=== PATIENT | female | born 1965 | race American Indian/Alaskan Native ===

== ENCOUNTER 2018-09-16 18:26 | Emergency (ER) | payer MEDICARE, OTHER ==
[2018-09-16 18:44] VITALS: RESP 18
--- NOTE | 2018-09-16 19:29 | C.PDOC ---
History Of Present Illness 53 year old female with PMHx of DM and HTN presents to the ED c/o slightly elevated blood pressure, currently asymptomatic. Patient was seen at Dr. Long's office today and was given Lozartan 100 mg. Patient states she does not want to stay for workup because she wants to catch the bus. Patient denies headache, visual changes, CP, SOB, palpitations, weakness, numbness. Time Seen by Provider: 09/16/18 19:24 Chief Complaint (Nursing): High Blood Pressure History Per: Patient History/Exam Limitations: no limitations Onset/Duration Of Symptoms: Hrs Current Symptoms Are (Timing): Gone Quality Of Symptoms: Asymptomatic Exacerbating Factor(s): Pos: Recent Change In Medication Recent travel outside of the [place]: No Additional History Per: Patient Past Medical History Reviewed: Historical Data, Nursing Documentation, Vital Signs Vital Signs: Last Vital Signs Temp 98.4 F 09/16/18 18:40 Pulse 78 09/16/18 18:40 Resp 18 09/16/18 18:40 BP 160/86 H 09/16/18 18:40 Pulse Ox 99 09/16/18 18:40 - Medical History PMH: Diabetes, HTN Surgical History: No Surg Hx Family History: States: Unknown Family Hx - Social History Hx Tobacco Use: Yes Hx Alcohol Use: Yes Hx Substance Use: No - Immunization History Hx Tetanus Toxoid Vaccination: Yes Hx Influenza Vaccination: Yes Hx Pneumococcal Vaccination: Yes Review Of Systems Constitutional: Negative for: Fever, Chills Eyes: Negative for: Vision Change Cardiovascular: Negative for: Chest Pain, Palpitations Respiratory: Negative for: Cough, Shortness of Breath Gastrointestinal: Negative for: Nausea, Vomiting, Abdominal Pain Skin: Negative for: Rash Neurological: Negative for: Weakness, Numbness, Headache, Dizziness Physical Exam - Physical Exam Appears: Non-toxic, No Acute Distress, Other (obese black female ) Skin: Normal Color, Warm, Dry Head: Atraumatic, Normacephalic Eye(s): bilateral: Normal Inspection, PERRL, EOMI Neck: Normal ROM, Supple Chest: Symmetrical Cardiovascular: Rhythm Regular Respiratory: Normal Breath Sounds, No Rales, No Rhonchi, No Wheezing Gastrointestinal/Abdominal: Soft, No Tenderness, No Guarding, No Rebound Extremity: Normal ROM, No Tenderness, No Swelling Neurological/Psych: Oriented x3, Normal Speech, Normal Cognition Gait: Steady ED Course And Treatment O2 Sat by Pulse Oximetry: 99 (ON RA) Pulse Ox Interpretation: Normal Medical Decision Making Medical Decision Making: seen by PMD earlier today, started on Losartan by Dr. Long feels fine defers w/u for opt f/u with PMD, "needs to catch her bus." BP wnl in ED Disposition Doctor Will See Patient In The: Office Counseled Patient/Family Regarding: Studies Performed, Diagnosis - Disposition Referrals: Alex Long MD [Family Provider] - Disposition: HOME/ ROUTINE Disposition Time: 19:29 Condition: GOOD Additional Instructions: continue daily Losartan per Dr. Long Daily exercise- power walk 45 min/day x 5 days/week weight loss outpatient follow-up Instructions: High Blood Pressure in Adults Forms: [employer] [facility] (Vietnamese) - Clinical Impression Clinical Impression: Hypertension - Scribe Statement The provider has reviewed the documentation as recorded by the Scribe Larry Prabhakar All medical record entries made by the Scribe were at my direction and personally dictated by me. I have reviewed the chart and agree that the record accurately reflects my personal performance of the history, physical exam, medical decision making, and the department course for this patient. I have also personally directed, reviewed, and agree with the discharge instructions and disposition.
[2018-09-16 19:44] VITALS: BP 170/80; PULSE 80; TEMP 98.2
[2018-09-17 00:40] VITALS: O2SAT 99
--- NOTE | 2018-09-19 13:07 | CARD ---
APPROVED REPORT Date of service: 09/16/2018 EKG Measurement Heart [id number] <Conclusion> Normal sinus rhythm Rightward axis Possible Inferior infarct, age undetermined Abnormal ECG
== END 2018-09-16 19:44 | disposition home or self-care (01) ==
LOC: C.ER 18:26
DX: I10 Essential (primary) hypertension (principal); E11.9 Type 2 diabetes mellitus without complications; Z72.0 Tobacco use

== ENCOUNTER 2018-10-27 15:34 | Outpatient (CLI) | payer MEDICARE, OTHER | END 2018-10-27 15:35 | disposition home or self-care (01) | LOC: C.CTH 15:34 | DX: R59.9 Enlarged lymph nodes, unspecified (principal) ==

== ENCOUNTER 2018-12-25 00:51 | Observation (INO) | payer MEDICARE, OTHER ==
--- NOTE | 2018-12-25 01:02 | C.PDOC ---
History Of Present Illness Patient presents to the ED c/o chest pain that started while at rest. Patient also reports she felt like her blood pressure was high, which prompted the visit to the ED. Patient denies fever, chills, nausea, vomit, SOB, palpitations, headache, weakness, numbness. Time Seen by Provider: 12/25/18 01:02 Chief Complaint (Nursing): Chest Pain History Per: Patient History/Exam Limitations: no limitations Onset/Duration Of Symptoms: Hrs Current Symptoms Are (Timing): Still Present Quality: "Pain" Recent travel outside of the [place]: No Additional History Per: Patient Past Medical History Reviewed: Historical Data, Nursing Documentation, Vital Signs - Medical History PMH: Diabetes, HTN Surgical History: No Surg Hx Family History: States: Unknown Family Hx - Social History Hx Tobacco Use: Yes Hx Alcohol Use: Yes Hx Substance Use: No - Immunization History Hx Tetanus Toxoid Vaccination: Yes Hx Influenza Vaccination: Yes Hx Pneumococcal Vaccination: Yes Review Of Systems Constitutional: Negative for: Fever, Chills Eyes: Negative for: Vision Change Cardiovascular: Positive for: Chest Pain. Negative for: Palpitations Respiratory: Negative for: Shortness of Breath Gastrointestinal: Negative for: Nausea, Vomiting, Abdominal Pain Skin: Negative for: Rash Neurological: Negative for: Weakness, Numbness, Headache, Dizziness Physical Exam - Physical Exam Appears: Non-toxic, No Acute Distress Skin: Warm, Dry Head: Normacephalic Eye(s): bilateral: Normal Inspection, PERRL, EOMI Neck: Supple Chest: Symmetrical Cardiovascular: Rhythm Regular Respiratory: No Rales, No Rhonchi, No Wheezing Gastrointestinal/Abdominal: Soft, No Tenderness, No Guarding, No Rebound Extremity: Bilateral: Atraumatic, Normal Color And Temperature, Normal ROM Neurological/Psych: Oriented x3, Normal Speech, Normal Cognition Gait: Steady ED Course And Treatment - Laboratory Results Result Diagrams: 12/25/18 01:54 12/25/18 01:54 ECG: Interpreted By Me, Viewed By Me ECG Rhythm: Sinus Rhythm (63), Nonspecific Changes O2 Sat by Pulse Oximetry: 97 (ON RA) Pulse Ox Interpretation: Normal - Radiology CXR: Interpreted by Me, Viewed By Me CXR Interpretation: Yes: Other (unchanged from 10/10/15). No: Infiltrates, Fracture, Pnemothorax Progress Note: Plan: - LAbs. - EKG. - CXR. - Aspiring 325 mg PO Disposition Discussed With : Alex Long Comment: accepted the pt on his service and took over the care at 3:17 AM Doctor Will See Patient In The: Hospital Counseled Patient/Family Regarding: Studies Performed, Diagnosis - Disposition Disposition: HOSPITALIZED Disposition Time: 01:02 Condition: FAIR Forms: [facility] (Telugu) - POA Present On Arrival: Poor Glycemic Control - Clinical Impression Clinical Impression: Chest pain - Scribe Statement The provider has reviewed the documentation as recorded by the Scribe Larry Prabhakar All medical record entries made by the Scribe were at my direction and personally dictated by me. I have reviewed the chart and agree that the record accurately reflects my personal performance of the history, physical exam, medic al decision making, and the department course for this patient. I have also personally directed, reviewed, and agree with the discharge instructions and disposition. Decision To Admit - Pt Status Changed To: Hospital Disposition Of: Observation - . Bed Request Type: Telemetry Patient Diagnosis: Chest pain
[2018-12-25] MEDS ORDERED: Aspirin 325 mg EC Tablets PO STA (01:21)
[2018-12-25 01:57] LABS: BASO % 0.3 % (0.0-2.0); EOS # 0.1 K/uL (0.0-0.7); EOS % 1.2 % (0.0-4.0); HEMOGLOBIN 10.8 g/dL (11.0-16.0); LYMPH # 2.8 K/uL (1.0-4.3); LYMPH % 42.1 % (20.0-40.0); MEAN CELL VOLUME 93.7 fL (81.0-99.0); MEAN CORPUSCULAR HEMOGLOBIN 30.7 pg (27.0-31.0); MEAN CORPUSCULAR HGB CONC 32.8 g/dL (33.0-37.0); MEAN PLATELET VOLUME 9.3 fL (7.2-11.7); MONO # 0.7 K/uL (0.0-0.8); MONO % 10.1 % (0.0-10.0); NEUT # 3.1 K/uL (1.8-7.0); NEUT % 46.3 % (50.0-75.0); NRBC % 0.1 % (0.0-2.0); RBC 3.51 Mil/uL (3.80-5.20); RED CELL DISTRIBUTION WIDTH 13.7 % (11.5-14.5); WHITE BLOOD COUNT 6.7 K/uL (4.8-10.8)
[2018-12-25 02:15] LABS: ALBUMIN 3.7 g/dL (3.5-5.0); ALT/SGPT 13 U/L (9-52); AST/SGOT 26 U/L (14-36); BLOOD UREA NITROGEN 22 mg/dL (7-17); CALCIUM 9.7 mg/dl (8.6-10.4); GFR NON-AFRICAN AMERICAN 39; LIPASE 32 U/L (23-300)
[2018-12-25 02:38] LABS: BARBITURATES, UR NEGATIVE (NEGATIVE); BENZODIAZEPINES, UR NEGATIVE (NEGATIVE); OPIATES, UR NEGATIVE (NEGATIVE); PHENCYCLIDINE, UR NEGATIVE (NEGATIVE)
[2018-12-25 08:16] LABS: CK-MB 2.79 ng/mL (0.0-3.38)
--- NOTE | 2018-12-25 08:31 | RAD ---
Chest x-ray single frontal view History: Chest pain. Comparison: 10/10/2015 Findings: Mild venous congestion. Patchy increased markings at the right lung base. Right hilar prominence. Mild linear atelectasis at the left lung base. Enlarged ectatic aorta. Mild cardiomegaly. Degenerative changes in the spine. Impression: Mild venous congestion. Patchy increased markings at the right lung base. Right hilar prominence. Mild linear atelectasis at the left lung base. Enlarged ectatic aorta. Mild cardiomegaly.
[2018-12-25] MEDS: Enoxaparin 40 mg Syringe SC SCH (10:21)
[2018-12-25 14:29] LABS: CK-MB 2.54 ng/mL (0.0-3.38)
[2018-12-25] MEDS ORDERED: Aluminum Hydroxide/Magnesium Hydroxide Susp (30 mL) PO PRN (16:19)
--- NOTE | 2018-12-25 17:14 | CP.PCM.PN ---
Subjective - Date & Time of Evaluation Date of Evaluation: 12/25/18 Time of Evaluation: 17:15 - Subjective Subjective: alert, orientedx3, no sob or chest pains, abdomen soft no tenderness, NAD. Objective - Vital Signs/Intake and Output Vital Signs (last 24 hours): Temp Pulse Resp BP Pulse Ox 98.6 F 78 20 143/78 98 12/25/18 07:00 12/25/18 15:20 12/25/18 07:00 12/25/18 07:00 12/25/18 11:59 Intake and Output: 12/25/18 12/25/18 06:59 18:59 Intake Total 240 Balance 240 - Medications Medications: Current Medications Al Hydrox/Mg Hydrox/Simethicone (Maalox 30 Ml) 30 ml PO Q8H PRN PRN Reason: Indigestion / Heartburn Enoxaparin Sodium (Lovenox) 40 mg SC DAILY [facility] Last Admin: 12/25/18 10:21 Dose: Not Given Hydrochlorothiazide (Microzide) 12.5 mg PO DAILY [facility] Last Admin: 12/25/18 10:20 Dose: 12.5 mg Losartan Potassium (Cozaar) 100 mg PO DAILY [facility] Last Admin: 12/25/18 10:20 Dose: 100 mg Rosuvastatin Calcium (Crestor) 5 mg PO HS [facility] - Labs Labs: 12/25/18 01:54 12/25/18 01:54 Assessment and Plan - Assessment and Plan (Free Text) Assessment: 53 year old female admitted with chest pain, seen and examined. Alert and orientedx3, JERED negative, denies sob or chest pains. Complaints of some epigastric distress, improved with maalox. Discussed with DR Long, plan to discharge home in am. Advised to follow up with PMD in 1 week.
--- NOTE | 2018-12-25 21:46 | CP.PCM.HP ---
Present on Admission - Present on Admission Any Indicators Present on Admission: No Past Patient History - Infectious Disease Hx of Infectious Diseases: None - Past Medical History & Family History Past Medical History?: Yes - Past Social History Smoking Status: Heavy Smoker > 10 Cigarettes Daily - CARDIAC Hx Hypertension: Yes - ENDOCRINE/METABOLIC Hx Endocrine Disorders: Yes Other/Comment: "pre-diabetic" - MUSCULOSKELETAL/RHEUMATOLOGICAL Hx Falls: No - PSYCHIATRIC Hx Substance Use: No - SURGICAL HISTORY Hx Surgeries: No - ANESTHESIA Hx Anesthesia: No Hx Anesthesia Reactions: No Hx Malignant Hyperthermia: No Meds Allergies/Adverse Reactions: Allergies Allergy/AdvReac Type Severity Reaction Status Date / Time No Known Allergies Allergy Verified 09/16/18 18:44 Results - Vital Signs Recent Vital Signs: Last Vital Signs Temp 98.7 F 12/25/18 16:00 Pulse 72 12/25/18 16:00 Resp 18 12/25/18 16:00 BP 138/67 12/25/18 16:00 Pulse Ox 98 12/25/18 16:00 - Labs Result Diagrams: 12/25/18 01:54 12/25/18 01:54 Labs: Laboratory Results - last 24 hr 12/25/18 12/25/18 12/25/18 01:21 01:40 01:54 WBC 6.7 RBC 3.51 L Hgb 10.8 L Hct 32.9 L MCV 93.7 MCH 30.7 MCHC 32.8 L RDW 13.7 Plt Count 210 MPV 9.3 Neut % (Auto) 46.3 L Lymph % (Auto) 42.1 H [place] % (Auto) 10.1 H Eos % (Auto) 1.2 Baso % (Auto) 0.3 Neut # (Auto) 3.1 Lymph # (Auto) 2.8 [place] # (Auto) 0.7 Eos # (Auto) 0.1 Baso # (Auto) 0.0 Sodium Potassium Chloride Carbon Dioxide Anion Gap BUN Creatinine Est GFR ( Amer) Est GFR (Non-Af Amer) Random Glucose Calcium Total Bilirubin AST ALT Alkaline Phosphatase Total Creatine Kinase CK-MB (Mass) Troponin I Total Protein Albumin Globulin Albumin/Globulin Ratio Lipase Urine HCG, Qual Negative Urine Opiates Screen Negative Urine Methadone Screen Negative Ur Barbiturates Screen Negative Ur Phencyclidine Scrn Negative Ur Amphetamines Screen Negative U Benzodiazepines Scrn Negative U Oth Cocaine Metabols Negative U Cannabinoids Screen Negative 12/25/18 12/25/18 12/25/18 01:54 07:46 13:55 WBC RBC Hgb Hct MCV MCH MCHC RDW Plt Count MPV Neut % (Auto) Lymph % (Auto) [place] % (Auto) Eos % (Auto) Baso % (Auto) Neut # (Auto) Lymph # (Auto) [place] # (Auto) Eos # (Auto) Baso # (Auto) Sodium 136 Potassium 3.6 Chloride 102 Carbon Dioxide 27 Anion Gap 11 BUN 22 H Creatinine 1.4 H Est GFR ( Amer) 48 Est GFR (Non-Af Amer) 39 Random Glucose 143 H D Calcium 9.7 Total Bilirubin 0.3 AST 26 ALT 13 Alkaline Phosphatase 79 Total Creatine Kinase 146 H 117 CK-MB (Mass) 2.79 2.54 Troponin I < 0.0120 < 0.0120 < 0.0120 Total Protein 7.3 Albumin 3.7 Globulin 3.6 Albumin/Globulin Ratio 1.0 Lipase 32 Urine HCG, Qual Urine Opiates Screen Urine Methadone Screen Ur Barbiturates Screen Ur Phencyclidine Scrn Ur Amphetamines Screen U Benzodiazepines Scrn U Oth Cocaine Metabols U Cannabinoids Screen
--- NOTE | 2018-12-26 06:58 | HP ---
CHIEF COMPLAINT: Chest pain xfew hours. HISTORY OF PRESENT ILLNESS: This is a 53-year-old female, well known to me with history of hypertension, nonsmoker, non-diabetic with normal lipid levels. She is HIV positive, on HAART therapy. She is compliant with her diet, medications, and followup. She has history of multiple hospitalizations with chest pain, although in the past her workup for chest pain, for coronary artery disease is negative. On the day of admission, she developed sudden substernal chest pain, dull, non-radiating, not associated with diabetes or dizziness. No cough, no dyspepsia. This chest pain is non-exertional. No history of pleurisy. There is no history of dyspepsia. There is no history of nausea or vomiting. There is no history of dizziness, diaphoresis or dyspnea, occasional dyspnea on exertion. There is no history of orthopnea or PND. There is no history of abdominal pain, nausea, vomiting, or diarrhea. There is no history of rectal bleed. There is no history of joint pain, hip pain, or leg pains. ALLERGIES: ON HER ACCOUNT, NO KNOWN ALLERGIES. CURRENT MEDICATIONS: She is on valsartan. SOCIAL HISTORY: She is nonsmoker, non-ETOH user. PHYSICAL EXAMINATION: GENERAL: A middle-aged female in no acute distress. At the moment, she denies chest pain. VITAL SIGNS: Blood pressure 138/67, pulse 72, respiratory rate 18, temperature 98.7. SKIN: No rash seen, no bruising, no purpura, no petechia, no ecchymosis. HEENT: Atraumatic, normocephalic. Negative pallor. Negative jaundice. Extraocular movements are intact. NECK: Supple. No JVD, no lymph node, no thyromegaly, no carotid bruits. CHEST: Chest wall bilateral symmetrical expansion. No tenderness. No deformity. LUNGS: Bilaterally clear. No rales. No rhonchi. CARDIOVASCULAR SYSTEM: PMI at the fifth intercostal space. S1, S2, regular. No heave, no thrill. ABDOMEN: Soft, nontender. Bowel sounds are positive. RECTAL: Negative. EXTREMITIES: No clubbing, cyanosis, or edema. CENTRAL NERVOUS SYSTEM: Awake, alert, oriented x3. ASSESSMENT: 1. Atypical chest pain, rule out myocardial infarction. 2. Hypertension. 3. Anemia. 4. Acquired immunodeficiency syndrome. PLAN: Continue BP medications, Cardizem, . Monitor the patient. Alex Long MD
[2018-12-26 08:06] VITALS: PULSE 65; RESP 18
[2018-12-26 08:11] VITALS: BP 136/85; TEMP 98.3; O2SAT 99
[2018-12-26] MEDS: Enoxaparin 40 mg Syringe SC SCH (09:40)
--- NOTE | 2018-12-26 22:26 | CP.PCM.DIS ---
Provider - Provider Date of Admission: 12/25/18 03:09 Attending physician: Alex Long MD Time Spent in preparation of Discharge (in minutes): 30 Hospital Course - Lab Results Lab Results: Most Recent Lab Values WBC 6.7 K/uL (4.8-10.8) 12/25/18 01:54 RBC 3.51 Mil/uL (3.80-5.20) L 12/25/18 01:54 Hgb 10.8 g/dL (11.0-16.0) L 12/25/18 01:54 Hct 32.9 % (34.0-47.0) L 12/25/18 01:54 MCV 93.7 fL (81.0-99.0) 12/25/18 01:54 MCH 30.7 pg (27.0-31.0) 12/25/18 01:54 MCHC 32.8 g/dL (33.0-37.0) L 12/25/18 01:54 RDW 13.7 % (11.5-14.5) 12/25/18 01:54 Plt Count 210 K/uL (130-400) 12/25/18 01:54 MPV 9.3 fL (7.2-11.7) 12/25/18 01:54 Neut % (Auto) 46.3 % (50.0-75.0) L 12/25/18 01:54 Lymph % (Auto) 42.1 % (20.0-40.0) H 12/25/18 01:54 [place] % (Auto) 10.1 % (0.0-10.0) H 12/25/18 01:54 Eos % (Auto) 1.2 % (0.0-4.0) 12/25/18 01:54 Baso % (Auto) 0.3 % (0.0-2.0) 12/25/18 01:54 Neut # (Auto) 3.1 K/uL (1.8-7.0) 12/25/18 01:54 Lymph # (Auto) 2.8 K/uL (1.0-4.3) 12/25/18 01:54 [place] # (Auto) 0.7 K/uL (0.0-0.8) 12/25/18 01:54 Eos # (Auto) 0.1 K/uL (0.0-0.7) 12/25/18 01:54 Baso # (Auto) 0.0 K/uL (0.0-0.2) 12/25/18 01:54 Sodium 136 mmol/L (132-148) 12/25/18 01:54 Potassium 3.6 mmol/L (3.6-5.2) 12/25/18 01:54 Chloride 102 mmol/L (98-107) 12/25/18 01:54 Carbon Dioxide 27 mmol/L (22-30) 12/25/18 01:54 Anion Gap 11 (10-20) 12/25/18 01:54 BUN 22 mg/dL (7-17) H 12/25/18 01:54 Creatinine 1.4 mg/dL (0.7-1.2) H 12/25/18 01:54 Est GFR ( Amer) 48 12/25/18 01:54 Est GFR (Non-Af Amer) 39 12/25/18 01:54 Random Glucose 143 mg/dL (65-105) H D 12/25/18 01:54 Calcium 9.7 mg/dl (8.6-10.4) 12/25/18 01:54 Total Bilirubin 0.3 mg/dL (0.2-1.3) 12/25/18 01:54 AST 26 U/L (14-36) 12/25/18 01:54 ALT 13 U/L (9-52) 12/25/18 01:54 Alkaline Phosphatase 79 U/L (38-126) 12/25/18 01:54 Total Creatine Kinase 117 U/L (30-135) 12/25/18 13:55 CK-MB (Mass) 2.54 ng/mL (0.0-3.38) 12/25/18 13:55 Troponin I < 0.0120 ng/mL (0.00-0.120) 12/25/18 13:55 Total Protein 7.3 g/dL (6.3-8.3) 12/25/18 01:54 Albumin 3.7 g/dL (3.5-5.0) 12/25/18 01:54 Globulin 3.6 gm/dL (2.2-3.9) 12/25/18 01:54 Albumin/Globulin Ratio 1.0 (1.0-2.1) 12/25/18 01:54 Lipase 32 U/L (23-300) 12/25/18 01:54 Urine HCG, Qual Negative (NEGATIVE) 12/25/18 01:40 Urine Opiates Screen Negative (NEGATIVE) 12/25/18 01:21 Urine Methadone Screen Negative (NEGATIVE) 12/25/18 01:21 Ur Barbiturates Screen Negative (NEGATIVE) 12/25/18 01:21 Ur Phencyclidine Scrn Negative (NEGATIVE) 12/25/18 01:21 Ur Amphetamines Screen Negative (NEGATIVE) 12/25/18 01:21 U Benzodiazepines Scrn Negative (NEGATIVE) 12/25/18 01:21 U Oth Cocaine Metabols Negative (NEGATIVE) 12/25/18 01:21 U Cannabinoids Screen Negative (NEGATIVE) 12/25/18 01:21 Discharge Plan - Follow Up Plan Condition: FAIR Disposition: HOME/ ROUTINE Instructions: Chest Pain (DC) Additional Instructions: TOLERATED Referrals: Alex Long MD [Staff Provider] -
--- NOTE | 2018-12-27 07:25 | DS ---
DISCHARGE DIAGNOSES: 1. Noncoronary chest pain. 2. Hypertension. 3. Anxiety, rule out cardiac neurosis. 4. Acquired human immunodeficiency syndrome. 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 She is not a candidate for repeat cardiac stress testing or angiogram, and she is for discharge. CONDITION UPON DISCHARGE: Stable. Alex Long MD
--- NOTE | 2018-12-28 15:37 | CARD ---
APPROVED REPORT Date of service: 12/25/2018 EKG Measurement Heart [id number] <Conclusion> Normal sinus rhythm Rightward axis Borderline ECG
== END 2018-12-26 11:20 | disposition home or self-care (01) ==
LOC: C.ER 00:51 → C.9E 03:09 → C.6T 03:40
PROVIDERS: ADMIT Internal Medicine; ATTEND Internal Medicine
DX: R07.89 Other chest pain (principal); D64.9 Anemia, unspecified; E11.9 Type 2 diabetes mellitus without complications; F41.9 Anxiety disorder, unspecified; I10 Essential (primary) hypertension; F17.210 Nicotine dependence, cigarettes, uncomplicated; B20 Human immunodeficiency virus [HIV] disease
CPT/HCPCS: 36415; 71045; 80053; 83690; 84484; 84703; 85025; 99284; G0378; G0480

== ENCOUNTER 2019-01-04 03:41 | Emergency (ER) | payer MEDICARE, OTHER ==
--- NOTE | 2019-01-04 03:49 | C.PDOC ---
Chief Complaint (Nursing): Chest Pain Past Medical History - Medical History PMH: Diabetes, HTN Family History: States: Unknown Family Hx - Social History Hx Tobacco Use: Yes Hx Alcohol Use: Yes Hx Substance Use: No - Immunization History Hx Tetanus Toxoid Vaccination: Yes Hx Influenza Vaccination: Yes Hx Pneumococcal Vaccination: Yes Disposition Counseled Patient/Family Regarding: Studies Performed, Diagnosis - Disposition Disposition Time: 03:49
--- NOTE | 2019-01-04 03:49 | C.PDOC ---
History Of Present Illness Patient was trying to go to sleep and felt some chest discomfort, which promted the ed visit. Pt was seen here last week for similar complaints and had a negative cardiac work up. Patient still smoke 1 ppd. Speaking in complete sen tences. No f/c/n/v Chief Complaint (Nursing): Chest Pain History Per: Patient History/Exam Limitations: no limitations Onset/Duration Of Symptoms: Hrs Current Symptoms Are (Timing): Better Severity: Mild Pain Scale Rating Of: 3 Reports Recently: Seen In ED, Treated By A Physician, Hospitalized Recent travel outside of the [place]: No Additional History Per: Patient Past Medical History Reviewed: Historical Data, Nursing Documentation, Vital Signs - Medical History PMH: Diabetes, HTN Family History: States: No Known Family Hx - Social History Hx Tobacco Use: Yes Hx Alcohol Use: Yes Hx Substance Use: No - Immunization History Hx Tetanus Toxoid Vaccination: Yes Hx Influenza Vaccination: Yes Hx Pneumococcal Vaccination: Yes Review Of Systems Constitutional: Negative for: Fever, Chills Eyes: Negative for: Vision Change ENT: Negative for: Throat Pain Cardiovascular: Positive for: Chest Pain Respiratory: Negative for: Shortness of Breath Gastrointestinal: Negative for: Nausea, Vomiting, Abdominal Pain Genitourinary: Negative for: Dysuria Musculoskeletal: Negative for: Back Pain Skin: Negative for: Rash Neurological: Negative for: Weakness Psych: Positive for: Anxiety Physical Exam - Physical Exam Appears: Non-toxic, No Acute Distress Skin: Warm, Dry Head: Normacephalic Eye(s): bilateral: Normal Inspection Oral Mucosa: Moist Neck: Supple Chest: Symmetrical Cardiovascular: Rhythm Regular Respiratory: No Rales, No Rhonchi, No Wheezing Gastrointestinal/Abdominal: Soft, No Tenderness, No Distention Back: No CVA Tenderness Extremity: No Tenderness Extremity: Bilateral: Atraumatic Pulses: Left Dorsalis Pedis: Normal, Right Dorsalis Pedis: Normal Neurological/Psych: Oriented x3 Gait: Steady ED Course And Treatment - Laboratory Results Result Diagrams: 01/04/19 04:31 01/04/19 04:31 ECG: Interpreted By Me, Viewed By Me ECG Rhythm: Sinus Rhythm (64), Nonspecific Changes O2 Sat by Pulse Oximetry: 97 Pulse Ox Interpretation: Normal - Radiology CXR: Interpreted by Me, Viewed By Me CXR Interpretation: Yes: Cardiomegaly (mild), Other (mild vasc congestion, unchanged from 12/25/18). No: Infiltrates, Fracture, Pnemothorax Reevaluation Time: 05:46 Reassessment Condition: Improved Medical Decision Making Medical Decision Making: I considered the following diagnoses: acute coronary syndrome, pulmonary embolism, lower respiratory infection, aortic dissection/aneurysm, pneumothorax, pericarditis, esophagitis/GERD, zoster and esophageal rupture but found them to be unlikely based on the history, physical exam, and diagnostics. My conclusions regarding the unlikely diagnoses were based on: the absence of significant EKG abnormalities, the lack of suggestive x-ray findings, the absence of significant abnormalities on cardiac monitoring, the absence of asymmetric pulses. Pt is cp free and wants to go home Upon provider reevaluation patient is feeling better, is medically stable, and requires no further treatment in the ED at this time. Patient will be discharged home . Counseling was provided and all questions were answered regarding diagnosis and need for follow up with dr long. There is agreement to discharge plan. Return if symptoms persist or worsen. Disposition Counseled Patient/Family Regarding: Studies Performed, Diagnosis - Disposition Referrals: Alex Long MD [Staff Provider] - Disposition: HOME/ ROUTINE Disposition Time: 03:49 Condition: FAIR Additional Instructions: Please return if symptoms recur Instructions: Chest Pain (DC), Anxiety, Adult (DC) Forms: [facility] (Armenian) - Clinical Impression Clinical Impression: Chest pain, Anxiety
[2019-01-04 03:54] VITALS: RESP 14
[2019-01-04] MEDS ORDERED: Aspirin 325 mg EC Tablets PO STA (03:55)
[2019-01-04 04:34] VITALS: O2SAT 97
[2019-01-04] MEDS ORDERED: Aspirin 325 mg EC Tablets PO ONE (04:34)
[2019-01-04 04:57] LABS: BASO % 0.5 % (0.0-2.0); EOS # 0.1 K/uL (0.0-0.7); EOS % 1.4 % (0.0-4.0); LYMPH # 2.9 K/uL (1.0-4.3); LYMPH % 46.3 % (20.0-40.0); MEAN CELL VOLUME 93.3 fL (81.0-99.0); MEAN CORPUSCULAR HEMOGLOBIN 30.7 pg (27.0-31.0); MEAN CORPUSCULAR HGB CONC 32.9 g/dL (33.0-37.0); MEAN PLATELET VOLUME 9.7 fL (7.2-11.7); MONO # 0.5 K/uL (0.0-0.8); MONO % 8.6 % (0.0-10.0); NEUT # 2.7 K/uL (1.8-7.0); NEUT % 43.2 % (50.0-75.0); RBC 3.59 Mil/uL (3.80-5.20); WHITE BLOOD COUNT 6.2 K/uL (4.8-10.8)
[2019-01-04 05:02] LABS: ALBUMIN 3.8 g/dL (3.5-5.0); ALT/SGPT 13 U/L (9-52); AST/SGOT 26 U/L (14-36); BLOOD UREA NITROGEN 20 mg/dL (7-17); CALCIUM 9.6 mg/dl (8.6-10.4); GFR NON-AFRICAN AMERICAN 43; LIPASE 25 U/L (23-300)
[2019-01-04 05:25] LABS: INR 1.1
[2019-01-04 06:25] VITALS: BP 134/78; PULSE 74; TEMP 97.5
--- NOTE | 2019-01-04 07:52 | RAD ---
HISTORY: chest pain COMPARISON: Chest x-ray performed 12/25/18 TECHNIQUE: Chest, one view. FINDINGS: Examination limited by habitus. LUNGS: Mild venous congestion. Right hilar/infrahilar prominence and infiltrate or edema. Please note that chest x-ray has limited sensitivity for the detection of pulmonary masses. PLEURA: No significant pleural effusion identified. No definite pneumothorax . CARDIOVASCULAR: Heart size appears top normal. Faint atherosclerotic calcifications of the aorta. OSSEOUS STRUCTURES: Degenerative changes of the spine. VISUALIZED UPPER ABDOMEN: Unremarkable. OTHER FINDINGS: None. IMPRESSION: Mild venous congestion. Right hilar/infrahilar prominence and infiltrate or edema.
--- NOTE | 2019-01-05 18:46 | CARD ---
APPROVED REPORT Date of service: 01/04/2019 EKG Measurement Heart [id number] MA [id number] <Conclusion> Normal sinus rhythm Normal ECG
== END 2019-01-04 06:26 | disposition home or self-care (01) ==
LOC: C.ER 03:41
DX: F41.9 Anxiety disorder, unspecified (principal); R07.9 Chest pain, unspecified